=== PATIENT | female | born 1950 | race African-American/Black ===

== ENCOUNTER 2019-06-15 12:09 | Emergency (ER) | payer OTHER ==
[2019-06-15 12:26] VITALS: BMI 49.4
--- NOTE | 2019-06-15 12:37 | PDOC ---
History of Present Illness - General Chief Complaint: Vaginal Bleeding Stated Complaint: VAG BLEED Time Seen by Provider: 06/15/19 12:36 History Source: Patient Exam Limitations: No Limitations - History of Present Illness Initial Comments: 68 year old female with PMH HTN, vaginal bleeding requiring D&C (2018) presented to ED for vaginal bleeding x4 weeks, worsening x4 days. She reported using 6 pads since this AM, having to double them up to maintain her bleeding. She denied chest pain, shortness of breath, vomiting, fever. She admitted to light pelvic cramping. She reported she had D&C and biopsy x1 year ago for vaginal bleeding, which was negative for malignancy. She reported she was seen by her OBGYN x4 weeks ago and started on oral therapy to stop bleeding ( medication name she does not know), but she does not feel it has been helping. OBGYN: Jie Billingsley PCP: Rosie Past History - Past Medical History Allergies/Adverse Reactions: Allergies Allergy/AdvReac Type Severity Reaction Status Date / Time No Known Allergies Allergy Verified 06/15/19 12:19 Home Medications: Ambulatory Orders Atenolol [Tenormin] 50 mg PO BID 06/15/19 Furosemide [Lasix] 20 mg PO DAILY 06/15/19 COPD: No HTN: Yes - Immunization History Immunization Up to Date: Yes - Psycho Social/Smoking Cessation Hx Smoking History: Never smoked Information on smoking cessation initiated: No Hx Alcohol Use: No Drug/Substance Use Hx: No Review of Systems - Review of Systems Able to Perform ROS?: Yes Comments:: ROS General: denied fever, chills, generalized weakness. HEENT: denied sore throat, rhinorrhea, ear pain. Cardiovascular: denied chest pain, palpitations, syncope, diaphoresis. Respiratory: denied shortness of breath, cough, sputum production, hemoptysis. Gastrointestinal: denied abdominal pain, nausea, vomiting, diarrhea, constipation, blood in stool. Genitourinary: admitted to vaginal bleeding, pelvic cramping. denied dysuria, increased urinary frequency, hematuria, urinary incontinence, flank pain. Back: denied back pain. Musculoskeletal: denied joint pain, muscle pain, joint swelling. Neurological: denied headache, dizziness, numbness, tingling, weakness. Integumentary: denied rash, laceration, abrasion. Hematologic/Lymphatic: denied bruising or bleeding. PE Constitutional: Well-nourished, Well-developed, appearing stated age. morbidly obese. HEENT: head is normocephalic, atraumatic. EOMI. PERRLA. Neck: supple. Full ROM. Cardiovascular: regular heart rhythm. no murmurs. no pericardial friction rub. Respiratory: clear to auscultation bilaterally. no crackles, rhonchi or wheezing. no stridor. Gastrointestinal: soft, nontender. normal bowel sounds. no rebound, guarding, masses. Pelvic: normal external genitalia. mild pooling of blood in vaginal canal. no CMT. no adnexal tenderness bilaterally. Extremities: peripheral pulses intact. no lower extremity edema. Neurological: CN 2-12 grossly intact. moves all four extremities. Psych: awake, alert, oriented x3. follows commands. answers questions appropriately. *Physical Exam - Vital Signs Last Vital Signs Temp Pulse Resp BP Pulse Ox 98.5 F 71 18 0/0 L 98 06/15/19 12:18 06/15/19 12:18 06/15/19 12:18 06/15/19 12:18 06/15/19 12:18 ED Treatment Course - LABORATORY CBC & Chemistry Diagram: 06/15/19 12:49 06/15/19 13:42 Medical Decision Making - Medical Decision Making 68 year old female with above PMH presented to ED for vaginal bleeding x4 weeks , worsening over x4 days. Vital Signs Temperature 98.5 F 06/15/19 12:18 Pulse Rate 71 06/15/19 12:18 Respiratory Rate 18 06/15/19 12:18 Blood Pressure 190/90 H 06/15/19 13:30 O2 Sat by Pulse Oximetry (%) 98 06/15/19 13:39 Afebrile. No tachycardia. No tachypnea Hypertensive. No hypoxia on room air. Labs ordered: CBC, CMP, coags Imaging ordered: TVUS Medications ordered: Tylenol 975 mg PO once Pt reported she has not taken her Lasix x2 days. 06/15/19 13:06 CBC WBC 6.1 K/mm3 (4.0-10.0) 06/15/19 12:49 RBC 5.43 M/mm3 (3.60-5.2) H 06/15/19 12:49 Hgb 12.8 GM/dL (10.7-15.3) 06/15/19 12:49 Hct 38.7 % (32.4-45.2) 06/15/19 12:49 MCV 71.2 fl (80-96) L 06/15/19 12:49 MCH 23.6 pg (25.7-33.7) L 06/15/19 12:49 MCHC 33.1 g/dl (32.0-36.0) 06/15/19 12:49 RDW 13.5 % (11.6-15.6) 06/15/19 12:49 Plt Count 266 K/MM3 (134-434) 06/15/19 12:49 MPV 8.6 fl (7.5-11.1) 06/15/19 12:49 Absolute Neuts (auto) 3.4 K/mm3 (1.5-8.0) 06/15/19 12:49 Neutrophils % 55.3 % (42.8-82.8) 06/15/19 12:49 Lymphocytes % 33.6 % (8-40) 06/15/19 12:49 Monocytes % 9.1 % (3.8-10.2) 06/15/19 12:49 Eosinophils % 1.2 % (0-4.5) 06/15/19 12:49 Basophils % 0.8 % (0-2.0) 06/15/19 12:49 Nucleated RBC % 0 % (0-0) 06/15/19 12:49 No leukocytosis. No anemia. 06/15/19 13:51 TVUS report: Name: [facility] DEPARTMENT OF RADIOLOGY Phys: Bertha Guillory RESIDENT : 1950 Age: 68 Sex: F [facility] Acct: [id number] Loc: [address] Exam Date: 06/15/19 Status: AYDE [place] [id number] Unit Number: [id number] EXAM#: TYPE/EXAM: RESULT: [id number] US/TRANSVAGINAL ULTRASOUND US Transvaginal ultrasound CLINICAL INFORMATION: vaginal bleeding, postmenopausal The exam was performed utilizing transvaginal and transabdominal scanning. The endometrium is thickened measuring approximately 2.8 cm. The endometrium was described as measuring 1.5 cm in thickness on a prior ultrasound study of 02/26/2017. Note is again made of several partially calcified intramural leiomyomas the most prominent measuring 4.7 cm in diameter. No free intraperitoneal fluid is seen. The ovaries could not be definitely visualized. IMPRESSION: Nonspecific endometrial thickening is noted as discussed above - ? hyperplasia versus neoplastic disease. Several intramural leiomyomas are noted. Reported By: Edward Epperson MD 06/15/19 6923 Lab reported hemolyzed CMP/PT/PTT/INR. Redraw sent. 06/15/19 14:23 INR, PTT INR 1.00 (0.83-1.09) 06/15/19 13:42 No coagulopathy. 06/15/19 14:48 CMP Sodium 139 mmol/L (136-145) 06/15/19 13:42 Potassium 4.1 mmol/L (3.5-5.1) 06/15/19 13:42 Chloride 107 mmol/L (98-107) 06/15/19 13:42 Carbon Dioxide 26 mmol/L (21-32) 06/15/19 13:42 Anion Gap 6 MMOL/L (8-16) L 06/15/19 13:42 BUN 14.1 mg/dL (7-18) 06/15/19 13:42 Creatinine 0.9 mg/dL (0.55-1.3) 06/15/19 13:42 Est GFR (CKD-EPI)AfAm 76.14 06/15/19 13:42 Est GFR (CKD-EPI)NonAf 65.70 06/15/19 13:42 Random Glucose 97 mg/dL (74-106) 06/15/19 13:42 Calcium 9.1 mg/dL (8.5-10.1) 06/15/19 13:42 Total Bilirubin 0.3 mg/dL (0.2-1) 06/15/19 13:42 AST 21 U/L (15-37) 06/15/19 13:42 ALT 20 U/L (13-61) 06/15/19 13:42 Alkaline Phosphatase 79 U/L (45-117) 06/15/19 13:42 Total Protein 7.6 g/dl (6.4-8.2) 06/15/19 13:42 Albumin 4.0 g/dl (3.4-5.0) 06/15/19 13:42 No electrolyte abnormalities. No DEANA. No transaminitis. No uremia. Pt informed of results and need to follow up with OBGYN. She reported understanding and agreed with plan for care. Pt discharged. Vital Signs Temperature 98 F 06/15/19 15:14 Pulse Rate 81 06/15/19 15:14 Respiratory Rate 17 06/15/19 15:14 Blood Pressure 184/89 H 06/15/19 15:14 O2 Sat by Pulse Oximetry (%) 99 06/15/19 15:14 Discharge - Discharge Information Problems reviewed: Yes Clinical Impression/Diagnosis: Vaginal bleeding, Endometrial thickening on ultrasound, Leiomyoma Condition: Stable Disposition: HOME - Admission No - Follow up/Referral Referrals: Steffen Velez MD [Primary Care Provider] - - Patient Discharge Instructions Patient Printed Discharge Instructions: DI for Vaginal Bleeding Additional Instructions: Follow up with your OBGYN within 3 days. Call today and ask for the soonest appointment. Bring all paperwork given to you today to your appointment. Return to the Emergency Department for increased bleeding, vomiting, lightheadedness, passing out, chest pain, shortness of breath, soaking through > 2 pads/2 consecutive hours, or any other new, worsening or concerning symptoms. - Post Discharge Activity Work/Back to School Note: Back to Work
[2019-06-15 13:02] LABS: BASO % 0.8 % (0-2.0); EOS % 1.2 % (0-4.5); HEMATOCRIT 38.7 % (32.4-45.2); HEMOGLOBIN 12.8 GM/dL (10.7-15.3); LYMPH % 33.6 % (8-40); MCH 23.6 pg (25.7-33.7); MCHC 33.1 g/dl (32.0-36.0); MEAN CELL VOLUME 71.2 fl (80-96); MEAN PLT VOLUME 8.6 fl (7.5-11.1); MONO % 9.1 % (3.8-10.2); NEUT % 55.3 % (42.8-82.8); PLATELET COUNT 266 K/MM3 (134-434); RBC 5.43 M/mm3 (3.60-5.2); RDW 13.5 % (11.6-15.6); WHITE BLOOD COUNT 6.1 K/mm3 (4.0-10.0)
--- NOTE | 2019-06-15 13:15 | PDOC ---
Attending Attestation - Resident Resident Name: Bertha Guillory - ED Attending Attestation I have performed the following: I have examined & evaluated the patient, The case was reviewed & discussed with the resident, I agree w/resident's findings & plan, Exceptions are as noted - HPI HPI: 06/15/19 13:13 68y F hx of htn presents with vaginal bleeding x 4 weeks, had seen her customer relations assistant who gave her med that she complted but bleedng started. denies any sx suggestive of sypmtomatic anemia. pt notes she is soking through several pads /day. physicial exam: no acute distress abd soft nontender gu exam per resident - Physicial Exam PE: 06/15/19 15:08 see above - Medical Decision Making 06/15/19 15:08 pts labs reviewed no signs of anemia TVUS noted for fibroids and thickened endomerial stripe will hav ept fu with her customer relations assistant (she has an appt on sat) return precauion were discussed
[2019-06-15] MEDS ORDERED: ACETAMINOPHEN 325 MG TABLET (FP) PO ONE (13:44)
[2019-06-15] MEDS ORDERED: ACETAMINOPHEN 325 MG TABLET (FP) ONE (13:45)
[2019-06-15 14:22] LABS: PROTHROMBIN TIME (PATIENT) 11.8 SEC (9.7-13.0)
[2019-06-15 14:25] LABS: ACTIVATED PTT 23.5 SECONDS (25.2-36.5)
[2019-06-15 14:43] LABS: BILIRUBIN,TOTAL 0.3 mg/dL (0.2-1); BLOOD UREA NITROGEN 14.1 mg/dL (7-18); CALCIUM 9.1 mg/dL (8.5-10.1); CREATININE 0.9 mg/dL (0.55-1.3); POTASSIUM 4.1 mmol/L (3.5-5.1); TOT PROT 7.6 g/dl (6.4-8.2)
[2019-06-15 15:16] VITALS: BP 184/89; PULSE 81; TEMP 98
== END 2019-06-15 15:15 | disposition home or self-care (01) ==
LOC: JER 12:09
DX: D25.9 Leiomyoma of uterus, unspecified (principal); R93.89 Abnormal findings on diagnostic imaging of other specified body structures; I10 Essential (primary) hypertension
CPT/HCPCS: 36415; 76830-TC; 80053; 85025; 85610; 85730; 99283-25

== ENCOUNTER → 2020-12-01 | Day surgery (SDC) | payer OTHER | END | disposition home or self-care (01) | LOC: FMAMMOTONE 13:01 | PROVIDERS: ATTEND Family Medicine Geriatric Medicine | PROC: 0H9U3ZX Drainage of Left Breast, Percutaneous Approach, Diagnostic (ICD-10-PCS; principal; 2020-12-01) | DX: N60.12 Diffuse cystic mastopathy of left breast (principal) | CPT/HCPCS: 19081; 76098-TC-FY; 87899; 88305-TC; A4648 ==